=== PATIENT | female | born 1970 | race Caucasian/White ===

== ENCOUNTER 2018-04-26 13:13 | Inpatient (IN) ==
--- NOTE | 2018-04-26 13:37 | Emergency Department Note ---
Disposition Clinical Impression: Suicidal ideation Disposition: Admitted As Inpatient Condition: Good General Adult HPI - General Chief complaint: ED Psychiatric Symptoms Stated complaint: psych eval Time Seen by Provider: 04/26/18 13:33 Source: patient Limitations: no limitations - History of Present Illness Pain Scale: 8 - Related Data Home Medications Medication Instructions Recorded Confirmed RX: ARIPiprazole [Abilify] 2 mg PO HS 04/26/18 04/26/18 RX: Amitriptyline [Elavil] 25 mg PO HS 04/26/18 04/26/18 RX: Doxepin [Sinequan] 25 mg PO HS 04/26/18 04/26/18 RX: Gabapentin [Neurontin] 300 mg PO TID 04/26/18 04/26/18 RX: Nabumetone [Relafen] 500 mg PO BID 04/26/18 04/26/18 RX: Propranolol [Inderal] 20 mg PO BID 04/26/18 04/26/18 RX: Ranitidine HCl [Acid Development Coach] 300 mg PO HS 04/26/18 04/26/18 RX: SUMAtriptan succinate [Imitrex] 50 mg PO AD PRN 04/26/18 04/26/18 Allergies Allergy/AdvReac Type Severity Reaction Status Date / Time acetaminophen [From Tylenol] AdvReac Itching Verified 04/26/18 14:20 Past Medical History - Past Medical History Medical history: Reports: GERD, migraine Psychiatric history: Reports: anxiety, depression - Social History Smoking Status: Never smoker Smokeless Tobacco Status: No Alcohol use: Reports: none Drug use: Reports: none Physical Exam - General Limitations: no limitations General appearance: alert Course Vital Signs Temperature 98.8 F 04/26/18 13:28 Pulse Rate 86 04/26/18 13:28 Respiratory Rate 14 04/26/18 13:28 Blood Pressure 136/92 04/26/18 13:28 O2 Sat by Pulse Oximetry 99 04/26/18 13:28 Temperature 99.7 F H 04/26/18 19:50 Pulse Rate 98 04/26/18 19:50 Respiratory Rate 16 04/26/18 19:50 Blood Pressure 128/92 04/26/18 19:50 O2 Sat by Pulse Oximetry 97 04/26/18 19:50 Oxygen Delivery Oxygen Delivery Room Air Medical Decision Making - Lab Data Result diagrams: 04/26/18 13:34 04/26/18 13:34 Lab Results 04/26/18 04/26/18 04/26/18 Range/Units 13:34 13:34 13:51 WBC 9.0 (4.3-11.1) K/mcL RBC 4.99 H (3.82-4.97) M/mcL Hgb 13.7 (11.5-15.4) g/dL Hct 44.1 (35.3-44.9) % MCV 88.4 (83.0-100.0) fL MCH 27.5 L (28.0-33.3) pg MCHC 31.1 L (31.6-35.5) g/dL RDW 14.3 (11.5-14.5) % Plt Count 375 (140-400) K/mcL MPV 9.6 (9.4-12.4) fL Immature Gran % 0.3 (0-4) % Seg Neutrophils % 71.2 % Lymphocytes % 16.5 % Monocytes % 8.3 % Eosinophils % 3.0 % Basophils % 0.7 % Neutrophils # 6.4 (1.6-8.9) K/mcL Lymphocytes # 1.5 (0.6-4.6) K/mcL Monocytes # 0.7 (0.0-1.3) K/mcL Eosinophils # 0.3 (0.0-0.6) K/mcL Basophils # 0.1 (0.0-0.2) K/mcL Sodium 132 L (136-145) mEq/L Potassium 4.2 (3.5-5.1) mEq/L Chloride 110 H (98-107) mEq/L Carbon Dioxide 21 L (23-29) mEq/L BUN 17 (6-20) mg/dL Creatinine 0.59 L (0.60-1.20) mg/dL Est GFR ( Amer) > 60 (> 60) Est GFR (Non-Af Amer) > 60 (> 60) BUN/Creatinine Ratio 29 H (6-26) Glucose 98 (70-105) mg/dL Calculated Osmolality 276 L (280-300) Calcium 9.5 (8.6-10.3) mg/dL Total Bilirubin 0.2 L (0.3-1.0) mg/dL Direct Bilirubin 0.1 (0.0-0.2) mg/dL Indirect Bilirubin 0.1 (0.0-1.2) mg/dL AST 17 (13-39) Units/L ALT 10 (7-52) Units/L Alkaline Phosphatase 66 (34-104) Units/L Serum Total Protein 7.0 (6.4-8.9) g/dL Albumin 4.1 (3.5-5.7) g/dL Globulin 2.9 (2.4-3.5) g/dL Albumin/Globulin Ratio 1.4 (1.1-2.2) Salicylates < 2.5 L (15.0-30.0) mg/dL Urine Opiates Screen Negative (Ouzqne=839) ng/mL Acetaminophen < 10 L (10-20) mcg/mL Ur Barbiturates Screen Negative (Vsszgk=251) ng/mL Ur Phencyclidine Scrn Negative (Cutoff=25) ng/mL Ur Amphetamines Screen Negative (Kpcnga=8761) ng/mL U Benzodiazepines Scrn Negative (Svjpkw=886) ng/mL Urine Cocaine Screen Negative (Cutoff= 300) ng/mL U Marijuana (THC) Screen Negative (Cutoff = 50) ng/mL Ur Drug Screen Interp See Below Ethyl Alcohol < 10 (Less than 10) mg/dL Attestation Statement - Attestation Attestation: I examined this patient and my medical decision-making was reviewed with the Resident Physician. I agree with the documented findings, disposition and treatment plan as described except to the extent set forth below. [id number] time provided Patient evaluated in conjunction with the resident physician Dr. Lim. Patient presents with a migraine-type headache. Previous history thereof. She also feels depressed. Triage note and vitals reviewed by me
[2018-04-26] MEDS ORDERED: Prochlorperazine 10 MG/2 ML VIAL IVP ONE (13:43)
[2018-04-26] MEDS ORDERED: Ketorolac 15 MG/ML VIAL IVP ONE (13:43)
--- NOTE | 2018-04-26 13:52 | Emergency Department Note ---
Disposition Clinical Impression: Suicidal ideation Disposition: Admitted As Inpatient Condition: Good Referrals: Robert Mckeon DO [Primary Care Provider] - Forms: ED Satisfaction Letter Time of Disposition: 17:40 General Adult HPI - General Chief complaint: ED Psychiatric Symptoms Stated complaint: psych eval Time Seen by Provider: 04/26/18 13:33 Source: patient Mode of arrival: ambulatory Limitations: no limitations Nursing Notes Reviewed: Yes Vital Signs Reviewed: Yes - History of Present Illness HPI Narrative: Patient is a 47-year-old female that presents emergency Department with reports of suicidal ideation. Patient states that she has a history of depression and anxiety and does take medications. Patient states that she has recently been out of her psychiatric meds. Patient states that she is having thoughts of harming herself and is afraid that she is going to overdose on her home medications if she is left alone by herself. Patient states that she has required previous admission to the hospital for her depression and anxiety. Patient states that she is following with a counselor outside of the [facility]. Patient denies any homicidal ideations. Patient does state that she will occasionally have hallucinations but is not having any at this time. Patient states that when she had been admitted before she did go to [facility] for her psychiatric care. Patient states that her symptoms are related to her significant back pain from her scoliosis. Patient states that the pain has been worse at this time. Patient also reports that she has been having a migraine. Patient states that she has a history of migraines and this is very typical of her migraine like symptoms. Patient reports photo and phonophobia. Patient denies any numbness, weakness or tingling. Pain Scale: 8 - Related Data Home Medications Medication Instructions Recorded Confirmed ARIPiprazole [Abilify] 2 mg PO HS 04/26/18 04/26/18 Amitriptyline [Elavil] 25 mg PO HS 04/26/18 04/26/18 Doxepin [Sinequan] 25 mg PO HS 04/26/18 04/26/18 Gabapentin [Neurontin] 300 mg PO TID 04/26/18 04/26/18 Nabumetone [Relafen] 500 mg PO BID 04/26/18 04/26/18 Propranolol [Inderal] 20 mg PO BID 04/26/18 04/26/18 Ranitidine HCl [Acid Painter And Body Mechanic Apprentice] 300 mg PO HS 04/26/18 04/26/18 SUMAtriptan succinate [Imitrex] 50 mg PO AD PRN 04/26/18 04/26/18 Allergies Allergy/AdvReac Type Severity Reaction Status Date / Time acetaminophen [From Tylenol] AdvReac Itching Verified 04/26/18 14:20 All systems ED: reviewed and negative except as stated. Cardiovascular: Denies: chest pain Respiratory: Denies: dyspnea Gastrointestinal: Denies: abdominal pain Musculoskeletal: Reports: back pain Past Medical History - Past Medical History Medical history: Reports: GERD, migraine Psychiatric history: Reports: anxiety, depression - Social History Smoking Status: Never smoker Smokeless Tobacco Status: No Alcohol use: Reports: none Drug use: Reports: none Physical Exam - General Limitations: no limitations General appearance: alert, in no apparent distress - Head Head exam: atraumatic, normocephalic - Eye Eye exam: Present: normal appearance, EOMI - Neck Neck exam: Present: normal inspection, full ROM, trachea midline - Respiratory Respiratory exam: Present: normal lung sounds bilaterally. Absent: respiratory distress, wheezes - Cardiovascular Cardiovascular exam: Present: regular rate, normal rhythm, normal heart sounds, +S1, +S2 - Abdominal Exam Abdominal exam: Present: soft, Non-Tender, normal bowel sounds - Back Exam Back exam: Present: other (Significant scoliosis ) - Neurological Exam Neurological exam: Present: alert, oriented X3 - Expanded Neurological Exam Speech: Present: fluid speech Cerebellar function: normal gait Motor strength - LUE: 5/5 Motor strength - RUE: 5/5 Motor strength - LLE: 5/5 Motor strength - RLE: 5/5 Coma Scale Eye Opening: Spontaneous Coma Scale Motor Response: Obeys Commands Coma Scale Verbal Response: Oriented Coma Scale Total: 15 - Psychiatric Psychiatric exam: Present: depressed, flat affect - Skin Skin exam: Present: warm, dry, intact Course Vital Signs Temperature 98.8 F 04/26/18 13:28 Pulse Rate 86 04/26/18 13:28 Respiratory Rate 14 04/26/18 13:28 Blood Pressure 136/92 04/26/18 13:28 O2 Sat by Pulse Oximetry 99 04/26/18 13:28 Temperature 98.8 F 04/26/18 13:28 Pulse Rate 86 04/26/18 13:28 Respiratory Rate 14 04/26/18 13:28 Blood Pressure 136/92 04/26/18 13:28 O2 Sat by Pulse Oximetry 99 04/26/18 13:28 Oxygen Delivery Oxygen Delivery Room Air Medical Decision Making - MDM Narrative Medical decision making narrative: Due the patient's into the emergency department with reports of migraine-like symptoms as well as depression and anxiety and suicidal ideation the patient will be pink slipped here in the emergency department. The patient's migraine we will be treated. Once the patient's migraine symptoms are under control and the patient has been medically cleared we will contact [facility] to evaluate the patient at bedside here in the emergency department. 1452 patient states that her headache is improving and starting to go away. Once the patient's headache symptoms have improved and patient's laboratory testing is returned the IV will be removed and the patient will be evaluated by our [facility] psychiatric team. 1518 patient laboratory testing returned was medically cleared. The patient's IV was removed and [facility] was contacted. [facility] will come to evaluate the patient at bedside. 1739 [facility]'s recommendation was for the patient to be admitted to their service for further evaluation and management of her psychiatric issues. Patient will be admitted to their service at this time. - Medical Records Medical records reviewed: Yes I reviewed the patient's medical records. - Lab Data Lab results reviewed: Yes I reviewed the patient's lab results. Result diagrams: 04/26/18 13:34 04/26/18 13:34 Lab Results 04/26/18 04/26/18 04/26/18 Range/Units 13:34 13:34 13:51 WBC 9.0 (4.3-11.1) K/mcL RBC 4.99 H (3.82-4.97) M/mcL Hgb 13.7 (11.5-15.4) g/dL Hct 44.1 (35.3-44.9) % MCV 88.4 (83.0-100.0) fL MCH 27.5 L (28.0-33.3) pg MCHC 31.1 L (31.6-35.5) g/dL RDW 14.3 (11.5-14.5) % Plt Count 375 (140-400) K/mcL MPV 9.6 (9.4-12.4) fL Immature Gran % 0.3 (0-4) % Seg Neutrophils % 71.2 % Lymphocytes % 16.5 % Monocytes % 8.3 % Eosinophils % 3.0 % Basophils % 0.7 % Neutrophils # 6.4 (1.6-8.9) K/mcL Lymphocytes # 1.5 (0.6-4.6) K/mcL Monocytes # 0.7 (0.0-1.3) K/mcL Eosinophils # 0.3 (0.0-0.6) K/mcL Basophils # 0.1 (0.0-0.2) K/mcL Sodium 132 L (136-145) mEq/L Potassium 4.2 (3.5-5.1) mEq/L Chloride 110 H (98-107) mEq/L Carbon Dioxide 21 L (23-29) mEq/L BUN 17 (6-20) mg/dL Creatinine 0.59 L (0.60-1.20) mg/dL Est GFR ( Amer) > 60 (> 60) Est GFR (Non-Af Amer) > 60 (> 60) BUN/Creatinine Ratio 29 H (6-26) Glucose 98 (70-105) mg/dL Calculated Osmolality 276 L (280-300) Calcium 9.5 (8.6-10.3) mg/dL Total Bilirubin 0.2 L (0.3-1.0) mg/dL Direct Bilirubin 0.1 (0.0-0.2) mg/dL Indirect Bilirubin 0.1 (0.0-1.2) mg/dL AST 17 (13-39) Units/L ALT 10 (7-52) Units/L Alkaline Phosphatase 66 (34-104) Units/L Serum Total Protein 7.0 (6.4-8.9) g/dL Albumin 4.1 (3.5-5.7) g/dL Globulin 2.9 (2.4-3.5) g/dL Albumin/Globulin Ratio 1.4 (1.1-2.2) Salicylates < 2.5 L (15.0-30.0) mg/dL Urine Opiates Screen Negative (Whkexq=294) ng/mL Acetaminophen < 10 L (10-20) mcg/mL Ur Barbiturates Screen Negative (Luullq=935) ng/mL Ur Phencyclidine Scrn Negative (Cutoff=25) ng/mL Ur Amphetamines Screen Negative (Kzpyvp=6015) ng/mL U Benzodiazepines Scrn Negative (Lfwykv=718) ng/mL Urine Cocaine Screen Negative (Cutoff= 300) ng/mL U Marijuana (THC) Screen Negative (Cutoff = 50) ng/mL Ur Drug Screen Interp See Below Ethyl Alcohol < 10 (Less than 10) mg/dL
[2018-04-26 14:14] LABS: Amphetamine Screen,Urine Negative ng/mL (Cutoff=1000); Barbiturate Screen,Urine Negative ng/mL (Cutoff=200); Benzodiazepines Screen,Urine Negative ng/mL (Cutoff=200); Cannabinoid Screen,Urine Negative ng/mL (Cutoff = 50); Cocaine Screen,Urine Negative ng/mL (Cutoff= 300); Opiate Screen,Urine Negative ng/mL (Cutoff=300); Phencyclidine Screen,Urine Negative ng/mL (Cutoff=25)
[2018-04-26 14:46] LABS: Basophils # 0.1 K/mcL (0.0-0.2); Basophils % 0.7 %; Eosinophils # 0.3 K/mcL (0.0-0.6); Hematocrit 44.1 % (35.3-44.9); Hemoglobin 13.7 g/dL (11.5-15.4); Immature Granulocytes % 0.3 % (0-4); Lymphocytes # 1.5 K/mcL (0.6-4.6); Lymphocytes % 16.5 %; Mean Corpuscular HGB Conc 31.1 g/dL (31.6-35.5); Mean Corpuscular Hemoglobin 27.5 pg (28.0-33.3); Mean Corpuscular Volume 88.4 fL (83.0-100.0); Mean Platelet Volume 9.6 fL (9.4-12.4); Monocytes # 0.7 K/mcL (0.0-1.3); Monocytes % 8.3 %; Neutrophils # 6.4 K/mcL (1.6-8.9); Platelet Count 375 K/mcL (140-400); Red Blood Count 4.99 M/mcL (3.82-4.97); Red Cell Distribution Width 14.3 % (11.5-14.5); Segmented Neutrophils % 71.2 %
[2018-04-26 15:07] LABS: Acetaminophen < 10 mcg/mL (10-20); Alanine Aminotransferase 10 Units/L (7-52); Albumin 4.1 g/dL (3.5-5.7); Albumin/Globulin Ratio 1.4 (1.1-2.2); Alkaline Phosphatase 66 Units/L (34-104); Aspartate Amino Transferase 17 Units/L (13-39); BUN/Creatinine Ratio 29 (6-26); Bilirubin,Direct 0.1 mg/dL (0.0-0.2); Bilirubin,Indirect 0.1 mg/dL (0.0-1.2); Bilirubin,Total 0.2 mg/dL (0.3-1.0); Blood Urea Nitrogen 17 mg/dL (6-20); Calcium 9.5 mg/dL (8.6-10.3); Carbon Dioxide 21 mEq/L (23-29); Chloride 110 mEq/L (98-107); Ethanol < 10 mg/dL (Less than 10); Globulin 2.9 g/dL (2.4-3.5); Glucose 98 mg/dL (70-105); Osmolality,Calculated 276 (280-300); Potassium 4.2 mEq/L (3.5-5.1); Salicylate < 2.5 mg/dL (15.0-30.0); Sodium 132 mEq/L (136-145); eGFR For Non-African Americans > 60 (> 60)
[2018-04-26] MEDS ORDERED: *HR* LORazepam 1 MG TABLET PO PRN (19:07)
[2018-04-26] MEDS ORDERED: Ibuprofen 400 MG TABLET PO PRN (19:07)
[2018-04-26] MEDS ORDERED: MOM Conc 10 ML UD.LIQ PO PRN (19:07)
[2018-04-26] MEDS ORDERED: *HR* LORazepam 2 MG/ML VIAL IM PRN (19:07)
[2018-04-26] MEDS ORDERED: Haloperidol Lactate 5 MG/ML VIAL IM PRN (19:07)
[2018-04-26] MEDS: ARIPiprazole 2 MG TABLET PO SCH (21:04)
[2018-04-26] MEDS: Gabapentin 300 MG CAPSULE PO SCH (21:05)
[2018-04-26] MEDS: Famotidine 20 MG TABLET PO SCH (21:05)
[2018-04-27] MEDS: SUMAtriptan succinate 50 MG TABLET PO PRN (04:25)
[2018-04-27] MEDS: Mag Hydrox/Al Hydrox/Simeth 30 ML UDC PO PRN (04:25)
[2018-04-27] MEDS: Gabapentin 300 MG CAPSULE PO SCH ×3 (08:48→21:00)
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
[2018-04-27] MEDS: ARIPiprazole 2 MG TABLET PO SCH (21:00)
[2018-04-27] MEDS: Famotidine 20 MG TABLET PO SCH (21:00)
[2018-04-27] MEDS: hydrOXYzine pamoate 25 MG CAPSULE PO PRN (21:02)
[2018-04-28] MEDS: Mag Hydrox/Al Hydrox/Simeth 30 ML UDC PO PRN ×2 (04:15→10:33)
[2018-04-28] MEDS: Gabapentin 300 MG CAPSULE PO SCH ×3 (08:49→21:33)
--- NOTE | 2018-04-28 12:15 | Psychiatry Progress Note ---
Date of Encounter: 04/28/18 Time of Encounter: 10:00 Subjective Interval history: Patient was seen in her room this AM. She reports that she is "a little better" today, reporting her depression at a 5/10 when it was a 10/10 on admission (10 being worse she has ever felt). She reports that she enjoys interacting with people, noting her isolated life as a stressor towards her depression. She does report anxiety of 7/10, stating that she does have social anxiety at times as well but does better when she starts speaking with someone. She also reports anxiety with stomach issues, reporting severe acid reflux last night and this morning which has been improved with PRNs. She reports adequate sleep, stating she woke up at 0400 for her acid reflux but was able to get back to sleep shortly after. She reports improved appetite. She denies side effects to medications outside of acid reflux, which she will improve by taking medications with food (stating she does not need med time changes to accomplish this). She denies grogginess or trouble with the increase of the Amitriptyline. She denies current SI, HI, AH, and VH. Review of Systems Gastrointestinal: Reports: abdominal pain (acid reflux) Psychiatric: Reports: depression, anxiety, change in appetite (improved), anhedonia, difficulty concentrating. Denies: abnormal sleep pattern, suicidal ideation, homicidal ideation, auditory hallucinations, visual hallucinations, confusion, memory loss Results - Vital Signs Vital Signs: Temp Pulse Resp BP Pulse Ox 98.1 F 77 18 104/71 97 04/28/18 08:45 04/28/18 08:45 04/28/18 08:45 04/28/18 08:45 04/28/18 08:45 - Drug Levels and Toxicology Drug Levels and Toxicology: none new this AM - Labs Labs: none new this AM - Impressions none new this AM Assessment and Plan (1) Major depressive disorder, recurrent episode, severe with anxious distress Current visit: Yes Status: Acute Plan: Continue hospitalization, Close observation, Suicide Precautions per unit protocol, Encourage participation in unit milieu, Group Therapy, Monitor sleep, Monitor appetite Additional Plan: -Continue Amitriptyline 50mg PO QHS for mood -Continue Aripiprazole 2mg PO QHS for mood -Continue Hydroxyzine 25mg PO TID PRN for anxiety -Continue Trazodone 50mg PO QHS PRN for sleep -Continue PRN medications -Encourage taking medications with food as needed to assist with acid reflux -Encourage group therapy -Patient reports she does have her own home -Patient follows [facility] with [facility] -Anticipated Discharge once more clinically stable Risks, benefits, side effects, alternatives discussed w/pt: Yes (previously spoken about) Patient agreeable to treatment: Yes Consult Discharge Plan - Plan Referrals: NONE,PCP [Primary Care Provider] - - Attending Attestation I examined this patient and my medical decision-making was reviewed with the Resident Physician. I agree with the documented findings, disposition and treatment plan as described. Psychiatry Exam - Constitutional Vitals: Temp Pulse Resp BP Pulse Ox 98.1 F 77 18 104/71 97 04/28/18 08:45 04/28/18 08:45 04/28/18 08:45 04/28/18 08:45 04/28/18 08:45 General appearance: age & developmentally appropriate, well-groomed, well- nourished, obese - Musculoskeletal Gait: other (limp noted, chronic) Station: relaxed Strength & Tone: normal for patient (grossly) - Psychiatric Patient Orientation: Yes Person, Yes Time, Yes Place Level of alertness: Alert, Follows commands Behavior: calm, cooperative Psychomotor activity: Normal Eye Contact: Maintains Eye Contact Mood Description: Euthymic/stable Patient description of mood: "little better" Affect description: congruent with mood, constricted (decreased facial expressions) Speech Volume: Normal Speech pattern: normal rate, normal rhythm, normal tone, fluent, spontaneous, appropriate, clear, coherent Language & Vocabulary: consistent with education Thought Process: Logical, Linear, Goal Oriented Thought Content: No Suicidal ideation, No Homicidal ideation, No Overt delusions Perceptual Disturbances: No Reacting to internal stimuli, No Auditory hallucinations, No Visual hallucinations Attention Span Ability: Capable of Focused Attention, Capable of Sustained Attention Memory Description: Grossly Intact Patient Reliability: Reliable Historian Fund of knowledge: Yes abstraction ability, Yes aware of current events Intelligence Estimate: Average Judgment: Fair Insight: Partial
[2018-04-28] MEDS: ARIPiprazole 2 MG TABLET PO SCH (21:33)
[2018-04-28] MEDS: Famotidine 20 MG TABLET PO SCH (21:33)
[2018-04-29] MEDS: SUMAtriptan succinate 50 MG TABLET PO PRN (04:28)
[2018-04-29] MEDS: Mag Hydrox/Al Hydrox/Simeth 30 ML UDC PO PRN (04:28)
[2018-04-29] MEDS: Gabapentin 300 MG CAPSULE PO SCH ×3 (08:57→20:51)
--- NOTE | 2018-04-29 12:44 | Psychiatry Progress Note ---
Date of Encounter: 04/29/18 Time of Encounter: 10:30 Subjective Interval history: No issues were noted overnight. Patient was seen today in her room. Patient reports that she is "kind of sleepy." Reports that both anxiety and depression are "still there" but are "getting better. She reports getting adequate sleep last night. She does admit to waking up again with acid reflux. Denies issues with appetite. She reports having headache today which was relieved by sumatriptan. Reports that she believes the increase in the amitriptyline is helping. She denies side effects from medications other than drowsiness from gabapentin. She reports today that Dilia is a very protective factor for her and that she does not think she could suicide because of it. She denies current SI, HI, AH, and VH Review of Systems Neurological: Reports: headache (This a.m., relieved by sumatriptan) Psychiatric: Reports: depression, anxiety, anhedonia. Denies: abnormal sleep pattern, suicidal ideation, change in appetite, homicidal ideation, auditory hallucinations, visual hallucinations, confusion, memory loss Results - Vital Signs Vital Signs: Temp Pulse Resp BP Pulse Ox 98 F 86 18 115/81 96 04/29/18 09:00 04/29/18 09:00 04/29/18 09:00 04/29/18 09:00 04/29/18 09:00 - Drug Levels and Toxicology Drug Levels and Toxicology: None noted this a.m. - Labs Labs: None noted this a.m. - Impressions None noted this a.m. Assessment and Plan (1) Major depressive disorder, recurrent episode, severe with anxious distress Current visit: Yes Status: Acute Plan: Continue hospitalization, Close observation, Suicide Precautions per unit protocol, Encourage participation in unit milieu, Group Therapy, Monitor sleep, Monitor appetite Additional Plan: -Continue Amitriptyline 50mg PO QHS for mood -Continue Aripiprazole 2mg PO QHS for mood -Continue Hydroxyzine 25mg PO TID PRN for anxiety -Continue Trazodone 50mg PO QHS PRN for sleep -Continue PRN medications -Encourage taking medications with food as needed to assist with acid reflux -Encourage group therapy -Patient reports she does have her own home -Patient follows [facility] with [facility] -Anticipated Discharge in 1-2 days Risks, benefits, side effects, alternatives discussed w/pt: Yes (previously spoken about) Patient agreeable to treatment: Yes Consult Discharge Plan - Plan Referrals: NONE,PCP [Primary Care Provider] - - Attending Attestation I examined this patient and my medical decision-making was reviewed with the Resident Physician. I agree with the documented findings, disposition and treatment plan as described. Psychiatry Exam - Constitutional Vitals: Temp Pulse Resp BP Pulse Ox 98 F 86 18 115/81 96 04/29/18 09:00 04/29/18 09:00 04/29/18 09:00 04/29/18 09:00 04/29/18 09:00 General appearance: age & developmentally appropriate, well-groomed, well- nourished - Musculoskeletal Gait: normal Station: relaxed Strength & Tone: normal for patient (Grossly) - Psychiatric Patient Orientation: Yes Person, Yes Time, Yes Place, Yes Circumstance Level of alertness: Alert, Follows commands Behavior: calm, cooperative Psychomotor activity: Normal Eye Contact: Maintains Eye Contact Mood Description: Euthymic/stable Patient description of mood: "Kind of sleepy" Affect description: congruent with mood, constricted Speech Volume: Normal Speech pattern: normal rate, normal rhythm, normal tone, fluent, spontaneous, limited (Continued decreased prosody) Language & Vocabulary: consistent with education Thought Process: Goal Oriented, Circumstantial (Mildly so, possibly baseline for patient based off overall interaction) Thought Content: No Suicidal ideation, No Homicidal ideation, No Overt delusions Perceptual Disturbances: No Reacting to internal stimuli, No Auditory hallucinations, No Visual hallucinations Attention Span Ability: Capable of Focused Attention Memory Description: Grossly Intact Patient Reliability: Reliable Historian Fund of knowledge: Yes abstraction ability, Yes aware of current events Intelligence Estimate: Average Judgment: Fair Insight: Full
[2018-04-29] MEDS: ARIPiprazole 2 MG TABLET PO SCH (20:50)
[2018-04-29] MEDS: Famotidine 20 MG TABLET PO SCH (20:50)
[2018-04-29] MEDS: traZODone 50 MG TABLET PO PRN (20:50)
[2018-04-30] MEDS: Gabapentin 300 MG CAPSULE PO SCH ×3 (09:06→20:26)
[2018-04-30] MEDS: SUMAtriptan succinate 50 MG TABLET PO PRN (09:06)
--- NOTE | 2018-04-30 09:53 | Psychiatry Progress Note ---
Date of Encounter: 04/30/18 Time of Encounter: 09:48 Subjective Interval history: Client states she continues to feel better. Depression and anxiety are still there but manageable. She slept well last night for the first time. Typically she wakes up in the middle of the night needing Imitrex. Headaches are bad due to scoliosis. Needed Imitrex when she awoke this morning but generally feels good having gotten a good night's rest. Appetite is good. Attending groups and interacting well with staff and peers. Wants to follow up on referral to partial hospitalization program. In the meantime she wants to stick with her current providers as she states they come to her house which is a service she appreciates. Normally she is alone and feels like this is one of her biggest problems. Being on the unit and engaging in groups has helped her. She would likely do well in a partial program. Discussed discharge and client feels like she is ready. Denies SI/HI/AH/VH. Cannot transport herself and won't have a ride until tomorrow. Plan for discharge tomorrow morning. Review of Systems Constitutional: Denies: fever, chills, weakness, weight change Eyes: Denies: eye pain, vision change Ears, Nose, Throat: Denies: ear pain, throat pain, dental pain, hearing loss, congestion Cardiovascular: Denies: chest pain, palpitations, dyspnea on exertion Respiratory: Denies: cough, dyspnea, wheezes Gastrointestinal: Denies: abdominal pain, nausea, vomiting, diarrhea, constipation Musculoskeletal: Denies: joint swelling, joint pain Neurological: Denies: headache, weakness, numbness, memory loss Psychiatric: Reports: depression, anxiety, anhedonia. Denies: abnormal sleep pattern, suicidal ideation, change in appetite, homicidal ideation, auditory hallucinations, visual hallucinations, confusion, memory loss Results - Vital Signs Vital Signs: Temp Pulse Resp BP Pulse Ox 98.4 F 83 16 113/80 98 04/30/18 09:00 04/30/18 09:00 04/30/18 09:00 04/30/18 09:00 04/30/18 09:00 Assessment and Plan (1) Major depressive disorder, recurrent episode, severe with anxious distress Current visit: Yes Status: Acute Plan: Continue hospitalization, Close observation, Suicide Precautions per unit protocol, Encourage participation in unit milieu, Group Therapy, Monitor sleep, Monitor appetite Risks, benefits, side effects, alternatives discussed w/pt: Yes (previously spoken about) Patient agreeable to treatment: Yes Consult Discharge Plan - Plan Referrals: NONE,PCP [Primary Care Provider] - Psychiatry Exam - Constitutional Vitals: Temp Pulse Resp BP Pulse Ox 98.4 F 83 16 113/80 98 04/30/18 09:00 04/30/18 09:00 04/30/18 09:00 04/30/18 09:00 04/30/18 09:00 General appearance: age & developmentally appropriate, well-groomed, well- nourished - Musculoskeletal Gait: normal Station: relaxed Strength & Tone: normal for patient - Psychiatric Patient Orientation: Yes Person, Yes Time, Yes Place Level of alertness: Alert Behavior: calm, cooperative Psychomotor activity: Normal Eye Contact: Maintains Eye Contact Mood Description: Depressed, Anxious Affect description: full range Speech Volume: Normal Speech pattern: normal rate, normal rhythm, normal tone, fluent, spontaneous Language & Vocabulary: consistent with education Thought Process: Linear Thought Content: No Suicidal ideation, No Homicidal ideation, No Overt delusions Perceptual Disturbances: No Auditory hallucinations, No Visual hallucinations Attention Span Ability: Capable of Focused Attention Memory Description: Grossly Intact Patient Reliability: Reliable Historian Fund of knowledge: Yes abstraction ability, Yes aware of current events Intelligence Estimate: Average Judgment: Fair Insight: Partial
[2018-04-30] MEDS: Famotidine 20 MG TABLET PO SCH (20:26)
[2018-04-30] MEDS: hydrOXYzine pamoate 25 MG CAPSULE PO PRN (20:26)
[2018-04-30] MEDS: traZODone 50 MG TABLET PO PRN (20:26)
[2018-04-30] MEDS: ARIPiprazole 2 MG TABLET PO SCH (20:26)
[2018-05-01] MEDS: Gabapentin 300 MG CAPSULE PO SCH (08:53)
[2018-05-01 09:17] VITALS: BP 119/81
--- NOTE | 2018-05-01 10:53 | Discharge Summary ---
Date of Encounter: 05/01/18 Time of Encounter: 10:00 Diagnosis - Discharge Diagnosis (1) Suicidal ideation Status: Resolved Comments: Continue aripiprazole 2 mg qhs for mood. Continue amitriptyline 50 mg qhs for mood. (2) Major depressive disorder, recurrent episode, severe with anxious distress Status: Chronic Comments: Continue aripiprazole 2 mg qhs for mood. Continue amitriptyline 50 mg qhs for mood. Medications - Discharge Medications Prescriptions: Amitriptyline [Elavil] 50 mg PO HS 30 Days #30 tablet traZODone [TraZODone] 50 mg PO HS PRN 30 Days #30 tablet PRN Reason: Insomnia ARIPiprazole [Abilify] 2 mg PO HS 04/26/18 [History] Gabapentin [Neurontin] 300 mg PO TID 04/26/18 [History] Nabumetone [Relafen] 500 mg PO BID 04/26/18 [History] Propranolol [Inderal] 20 mg PO BID 04/26/18 [History] Ranitidine HCl [Acid [employer]] 300 mg PO HS 04/26/18 [History] SUMAtriptan succinate [Imitrex] 50 mg PO AD PRN 04/26/18 [History] Amitriptyline [Elavil] 50 mg PO HS 30 Days #30 tablet 05/01/18 [Rx] traZODone [TraZODone] 50 mg PO HS PRN 30 Days #30 tablet 05/01/18 [Rx] Allergy/AdvReac Type Severity Reaction Status Date / Time acetaminophen [From Tylenol] AdvReac Itching Verified 04/26/18 14:20 Results Procedures and tests throughout hospitalization: Completed Lab Orders Category Date Time Status Acetaminophen Stat Lab 04/26/18 13:34 Completed Basic Metabolic Panel Stat Lab 04/26/18 13:34 Completed Complete Blood Count [HEME] Stat Lab 04/26/18 13:34 Completed Drug Screen, Urine [UCHEM] Stat Lab 04/26/18 13:51 Completed Ethanol Stat Lab 04/26/18 13:34 Completed Hepatic Panel Stat Lab 04/26/18 13:34 Completed Salicylate Stat Lab 04/26/18 13:34 Completed Provider Date of admission: 04/26/18 18:41 Primary care physician: PCP NONE Consults: 04/26/18 20:30 Consult to Pastoral Services [CONS] Routine Comment: 04/26/18 21:00 Consult to Pastoral Services [CONS] Routine Comment: Discharging clinician: Alicia Rivero Psychiatry Exam - Constitutional Vitals: Temp Pulse Resp BP Pulse Ox 98.6 F 80 16 119/81 98 05/01/18 09:00 05/01/18 09:00 05/01/18 09:00 05/01/18 09:00 05/01/18 09:00 - Psychiatric Patient Orientation: Yes Person, Yes Time, Yes Place Level of alertness: Alert Behavior: calm, cooperative Psychomotor activity: Normal Eye Contact: Maintains Eye Contact Mood Description: Euthymic/stable Patient description of mood: "better" Affect description: congruent with mood, full range Speech Volume: Normal Speech pattern: normal rate, normal rhythm, normal tone, fluent, spontaneous Language & Vocabulary: consistent with education Thought Process: Linear, Goal Oriented Thought Content: No Suicidal ideation, No Homicidal ideation, No Overt delusions Perceptual Disturbances: No Auditory hallucinations, No Visual hallucinations Attention Span Ability: Capable of Focused Attention Memory Description: Grossly Intact Patient Reliability: Reliable Historian Fund of knowledge: Yes abstraction ability, Yes aware of current events Intelligence Estimate: Average Judgment: Limited Insight: Partial Hospital Course Hospital course: Ms. Crystal is a 47 year old female who was admitted for suicidal ideation which has since resolved. Her doxepin was discontinued and her amitriptyline was increased from 25 mg at night to 50 mg at night. Her dose of aripiprazole was maintained at 2 mg po qhs. Additionally, trazodone 50 mg po was prescribed as needed for sleep and her sleep significantly improved as a result. Her suicidal ideation subsided and her depression lessened. Her depression seems to be related to her medical issues, but the patient is not interested in surgery at this time. Patient was educated of her diagnosis and the risks, benefits, and side effects of treatment. She was monitored for responsiveness and side effects. Mood, anxiety, sleep, and appetite improved as did future orientation. Self-harm thoughts subsided, thinking cleared, and mood stabilized. Patient was able to attend both individual and group therapy sessions as well as meeting with the psychiatrist daily and urged to discuss any medication or treatment issues or other concerns. The patient was educated primarily by verbal means about their diagnosis and manifestations in their life. The option for treatment including group and individual therapy programming was offered to the patient and the use of medications with all their potential risks, benefits, and side effects were discussed with the patient at length. The patient was given the opportunity to ask questions and was noted to participate in the treatment in the planning process. The patient felt ready and eager to be discharged from the inpatient psychiatric unit to continue on with treatment as an outpatient. The patient agreed that they were safe for this disposition. The patient was considered to be able to participate in informed consent and decision making with respect to medical, legal, and financial issues of the time of discharge. At the time of discharge the patient adamantly denied any concerns for lethality including suicidal or homicidal thoughts, ideation, or plans and was future oriented toward ongoing mental health care and medical follow-up. Time spent discussing smoking cessation with patient: 3 to 10 minutes Does patient wish to continue nicotine replacement upon disc: No (non smoker) - Time Spent with Patient Total time spent providing and/or coordinating discharge services: Less than 30 minutes Specific discharge activities: Interval history reviewed. Available labs reviewed . Psychotherapy provided. Patient had an opportunity to ask questions and address concerns. Patient was in agreement with the treatment plan. The risks, benefits, and side effects of medications were discussed with the patient, including alternatives and treatment. The patient was educated on the abstaining from any alcohol or illicit substances, following up with all scheduled appointments, and taking all medications as prescribed. Assessment and Plan - Patient/Caregiver Discharge Instructions Activity: resume usual activities as tolerated Diet: regular diet Additional Instructions: Continue current medications. Follow up with outpatient mental health. Encourage continued therapy in a group or individual setting. The patient was discharged to home. - Follow up Plan Follow up with: [facility] [Other] - 05/15/18 11:30 am (You have an appointment scheduled at the [facility] on May 15 at 11:30 AM with Ruth Henderson for counseling. Office Hours M-F, 8:00 a.m. - 5:00 p.m.) [facility] [Outside] - 05/12/18 9:30 am (You have an appointm ent scheduled for Saturday, May 12, 2018 at 9:30 AM with Monica Gillis for an initial intake assessment. This appointment typically takes 1 1 hours and will cover your current symptoms and goals for treatment. Please complete the New Patient Intake Packet provided to you by [facility] staff and bring this with you to this appointment. Please also bring your insurance card, identification, proof of residence (utility bill or similar piece of mail), and proof of income (if applicable). If you are unable to keep this appointment, please call the office at the number above as soon as possible.) Functional capacity at discharge: independent ambulation Overall status at discharge: Stable Disposition: Home, Self-Care Quality - Multiple Antipsychotics Patient discharged on 2 or more antipsychotic medications: No - Attending Attestation I examined this patient and my medical decision-making was reviewed with the Resident Physician. I agree with the documented findings, disposition and treatment plan as described. Procedures - Procedures Procedures: Medication Management, Crisis Stabilization, Supportive Therapy, Group Therapy, Psychoeducational Therapy
== END 2018-05-01 13:40 | disposition home or self-care (01) | DRG 751 ==
LOC: EMEROOARM 13:13 → 1ANU 18:41
PROVIDERS: ADMIT Psychiatry & Neurology Psychiatry; ATTEND Psychiatry & Neurology Psychiatry

== ENCOUNTER 2019-07-15 21:44 | Inpatient (IN) ==
[2019-07-15] MEDS ORDERED: *HR* LORazepam 2 MG/ML VIAL IM PRN (21:58)
[2019-07-15] MEDS ORDERED: Mag Hydrox/Al Hydrox/Simeth 30 ML UDC PO PRN (21:58)
[2019-07-15] MEDS ORDERED: Haloperidol Lactate 5 MG/ML VIAL IM PRN (21:58)
[2019-07-15] MEDS ORDERED: haloperidoL 5 MG TABLET PO PRN (21:58)
[2019-07-15] MEDS ORDERED: *HR* LORazepam 1 MG TABLET PO PRN (21:58)
[2019-07-15] MEDS ORDERED: Ibuprofen 400 MG TABLET PO PRN (21:58)
[2019-07-15] MEDS ORDERED: traZODone 50 MG TABLET PO PRN (21:58)
[2019-07-15] MEDS ORDERED: MOM Conc 10 ML UD.LIQ PO PRN (21:58)
[2019-07-16] MEDS ORDERED: SUMAtriptan succinate 50 MG TABLET PO PRN (09:46)
[2019-07-16] MEDS ORDERED: Ondansetron ODT 4 MG TAB.RAPDIS SL PRN (09:48)
[2019-07-16] MEDS: Acetaminophen/Aspirin/Caffeine TABLET PO PRN ×2 (10:14→16:34)
[2019-07-16] MEDS: Gabapentin 300 MG CAPSULE PO SCH ×2 (10:15→21:37)
[2019-07-16] MEDS: hydrOXYzine pamoate 25 MG CAPSULE PO PRN (21:37)
[2019-07-16] MEDS: Mirtazapine 15 MG TABLET PO SCH (21:37)
[2019-07-17] MEDS: Acetaminophen/Aspirin/Caffeine TABLET PO PRN (04:31)
[2019-07-17] MEDS: Gabapentin 300 MG CAPSULE PO SCH ×2 (08:50→20:45)
[2019-07-17] MEDS: Mirtazapine 15 MG TABLET PO SCH (20:45)
[2019-07-18] MEDS: Acetaminophen/Aspirin/Caffeine TABLET PO PRN (08:00)
[2019-07-18] MEDS: Gabapentin 300 MG CAPSULE PO SCH ×2 (08:01→20:30)
[2019-07-18] MEDS: Mirtazapine 15 MG TABLET PO SCH (20:30)
[2019-07-18] MEDS: hydrOXYzine pamoate 25 MG CAPSULE PO PRN (20:30)
[2019-07-19] MEDS: Acetaminophen/Aspirin/Caffeine TABLET PO PRN (06:06)
[2019-07-19] MEDS: Gabapentin 300 MG CAPSULE PO SCH ×2 (10:07→20:51)
[2019-07-19] MEDS: Mirtazapine 15 MG TABLET PO SCH (20:51)
[2019-07-19] MEDS: hydrOXYzine pamoate 25 MG CAPSULE PO PRN (20:52)
[2019-07-20] MEDS: Acetaminophen/Aspirin/Caffeine TABLET PO PRN (08:30)
[2019-07-20] MEDS: Gabapentin 300 MG CAPSULE PO SCH ×2 (08:31→21:37)
[2019-07-20] MEDS: hydrOXYzine pamoate 25 MG CAPSULE PO PRN (21:37)
[2019-07-20] MEDS: Mirtazapine 15 MG TABLET PO SCH (21:37)
[2019-07-21] MEDS: Acetaminophen/Aspirin/Caffeine TABLET PO PRN (06:05)
[2019-07-21] MEDS: Gabapentin 300 MG CAPSULE PO SCH ×2 (09:16→20:25)
[2019-07-21] MEDS: Mirtazapine 15 MG TABLET PO SCH (20:25)
[2019-07-22] MEDS: Acetaminophen/Aspirin/Caffeine TABLET PO PRN (03:14)
[2019-07-22] MEDS: Gabapentin 300 MG CAPSULE PO SCH ×2 (09:09→20:21)
[2019-07-22] MEDS: Mirtazapine 15 MG TABLET PO SCH (20:22)
[2019-07-23] MEDS: Acetaminophen/Aspirin/Caffeine TABLET PO PRN (06:35)
[2019-07-23] MEDS: Gabapentin 300 MG CAPSULE PO SCH (08:53)
[2019-07-23 10:15] VITALS: BP 103/72
== END 2019-07-23 13:35 | disposition home or self-care (01) | DRG 751 ==
LOC: 1ANU 21:44 → SUATTDRO 21:44
PROVIDERS: ADMIT Psychiatry & Neurology Psychiatry; ATTEND Psychiatry & Neurology Psychiatry